=== PATIENT | female | born 1985 | race Caucasian/White ===

== ENCOUNTER 2023-07-13 17:45 | Emergency (ER) | payer SELFPAY ==
[~2023-07-13] VITALS: Ht 162.6 cm; Wt 81.8 kg
[~2023-07-13 17:45] MED LIST: CELEXA40 MG PO; KLONOPIN 0.5MG0.5 MG PO; MVI; TOPAMAX 100MG100 M1 PO; TOPAMAX50 MG PO; TOPROL XL100 MG PO; ZONEGRAN25 MG PO
[2023-07-13 17:46] VITALS: TEMP 97.7
[2023-07-13] MEDS ORDERED: Acetaminophen 500 MG TAB PO ONE (18:15)
[2023-07-13 19:21] VITALS: BP 134/91; PULSE 89
== END 2023-07-13 19:27 | disposition home or self-care (01) ==
LOC: COL.ER 17:45 → EDBD 17:46 → COL.ER 17:46
DX: M25.562 Pain in left knee (principal); F17.200 Nicotine dependence, unspecified, uncomplicated; W18.40XA Slipping, tripping and stumbling without falling, unspecified, initial encounter; X50.1XXA Overexertion from prolonged static or awkward postures, initial encounter; Y92.59 Other trade areas as the place of occurrence of the external cause; Y99.0 Civilian activity done for income or pay

== ENCOUNTER 2023-10-12 09:41 | Day surgery (SDC) | payer MEDICAID ==
[2023-10-12] VITALS (10 sets, daily range): BP systolic 110–147; BP diastolic 69–88; PULSE 60–93; TEMP 97.2–98
[~2023-10-12] VITALS: Ht 162.6 cm; Wt 73.1 kg
--- NOTE | 2023-10-12 09:50 | NUR ---
PATIENT ADMITED INTO ROOM 347, DIRECT ADMIT FROM [facility] WITH ABD PAIN. A&O. VSS. PATIENT REPORTS NAUSEA IS BETTER AFTER GETTING IV ZOFRAN IN ER AT [facility]. NO EMESIS. SENT POV WITH LEFT FORARM IV TO INT. HEAD TO TOE ASSESSMENT COMPLETE. AT BEDSIDE. NPO FOR SURGERY LATE TODAY. ORIENTED TO ROOM. CALL LIGHT IN REACH.
[2023-10-12] MEDS ORDERED: ZANAFLEX 4MG TAB4 MG PO (10:03)
[2023-10-12] MEDS ORDERED: PRISTIQ 50 MG T50 MG PO (10:07)
[2023-10-12] MEDS ORDERED: INDERAL 20MG20 MG PO (10:11)
[2023-10-12] MEDS ORDERED: FIORICET 325 MG1 TA1 PO (10:12)
[2023-10-12] MEDS ORDERED: DEPAKOTE 250MG250 MG PO (10:13)
[2023-10-12] MEDS ORDERED: DEPAKOTE500 MG PO (10:14)
[2023-10-12] MEDS ORDERED: Ondansetron 4 MG/2 ML VIAL IV PRN ×3 (10:30→19:30)
[2023-10-12] MEDS ORDERED: LR 1,000 ML IV SCH ×2 (10:30→12:30)
[2023-10-12] MEDS ORDERED: Morphine 4 MG/ML VIAL IV PRN (10:30)
[2023-10-12] MEDS ORDERED: TOPAMAX200 MG PO (10:30)
[2023-10-12] MEDS ORDERED: cefTRIAXone 1 G in Water For Injection,Sterile 10 ML IV ONE (10:30)
[2023-10-12] MEDS ORDERED: ZONEGRAN50 MG PO (10:35)
--- NOTE | 2023-10-12 11:55 | NUR ---
IC-GREEN GIVEN IV PER , SEE MAR.
[2023-10-12] MEDS ORDERED: Indocyanine Green 6.25 MG in Water For Injection,Sterile 1.25 ML IV SCH (12:00)
[2023-10-12] MEDS ORDERED: Meclizine 25 MG TAB PO SCH (12:30)
[2023-10-12] MEDS ORDERED: ULTRAM 50MG TAB50 MG PO (17:10)
--- NOTE | 2023-10-12 17:25 | NUR ---
PATIENT GOING DOWN TO OR VIA BED. CONSENT ON CHART. PRE-OP CHECKLIST AND TICKET TO RIDE DONE. PRE-OP MEDS GIVEN, SEE MAR, AND FLUIDS INFUSING VIA GRAVITY. PATIENT OFF FLOOR.
[2023-10-12] MEDS ORDERED: Midazolam 2 MG/2 ML VIAL ONE (17:37)
[2023-10-12] MEDS ORDERED: fentaNYL 50 MCG/ML 2 ML VIAL ONE ×2 (17:37→18:09)
[2023-10-12] MEDS ORDERED: Lidocaine PF 2% (20 MG/ML) 5 ML VIAL ONE (17:38)
[2023-10-12] MEDS ORDERED: Rocuronium 50 MG/5 ML Multi-Dose VIAL ONE ×2 (17:38→18:14)
[2023-10-12] MEDS ORDERED: Succinylcholine PF 200 MG/10 ML SYRINGE IV ONE (17:38)
[2023-10-12] MEDS ORDERED: Esmolol 10 MG/ML 10 ML VIAL IV ONE (18:09)
[2023-10-12] MEDS ORDERED: Topical Skin Adhesive 1 EACH (1 ML) TOP ONE (18:23)
[2023-10-12] MEDS ORDERED: dexAMETHasone 10 MG/ML VIAL ONE (18:25)
[2023-10-12] MEDS ORDERED: Ondansetron 4 MG/2 ML VIAL ONE (18:25)
[2023-10-12] MEDS ORDERED: Ketorolac 30 MG/ML VIAL ONE (18:25)
[2023-10-12] MEDS ORDERED: Meperidine 50 MG/ML 1 ML VIAL IV PRN (18:45)
[2023-10-12] MEDS ORDERED: hydrALAZINE 20 MG/ML 1 ML VIAL IV PRN (18:45)
[2023-10-12] MEDS ORDERED: fentaNYL 50 MCG/ML 1 ML SYRINGE/VIAL [PACU/SDC ONLY] IV PRN (18:45)
[2023-10-12] MEDS ORDERED: HYDROmorphone 1 MG/1 ML SYRINGE [PACU/SDC ONLY] IV PRN (18:45)
[2023-10-12] MEDS ORDERED: droPERidol 2.5 MG/ML 2 ML VIAL IV PRN (18:45)
[2023-10-12] MEDS ORDERED: Acetaminophen 325 MG TAB PO PRN (19:30)
[2023-10-12] MEDS ORDERED: Scopolamine 1 MG Delivered 3-Day PATCH TD ONE (19:43)
[2023-10-12] MEDS ORDERED: LR 1,000 ML IV ONE (20:05)
--- NOTE | 2023-10-12 20:05 | NUR ---
PT BACK TO ROOM 347 FROM PACU. A&O X4 BUT DROWSY. DENYING PAIN OR NAUSEA AT THIS TIME, SCOPOLAMINE PATCH BEHIND RT EAR. ON POSTOP VITALS, WNL. X4 LAP SITES PEDRO & EDGES WELL APPROX. IVF VIA GRAVITY INFUSING TO LEFT FOREARM. CALL LIGHT IN REACH
--- NOTE | 2023-10-12 21:30 | NUR ---
PT CONTINUES TO DENY N/V OR PAIN AT THIS TIME. PT TOLERATING ORAL INTAKE OK. AMBULATING AROUND ROOM INDEPENDENTLY. VSS. PT WANTING TO BE DISCHARGED TONIGHT
[2023-10-12] MEDS ORDERED: Home HYDROcodone/Acetaminophen 5/325 MG #4 TABS/PACK PO ONE (21:45)
--- NOTE | 2023-10-12 21:55 | NUR ---
REVIEWED DISCHARGED EDUCATION WITH PT & FAMILY, QUESTIONS ANSWERED. DR HERNANDEZ GAVE PHONE ORDER AROUND 1930 OK TO SEND PT HOME WITH TAKE HOME [employer] PACK IF D/C TONIGHT, REVIEWED WITH PT. RX# WAS [id number]. PT DENYING FURTHER NEEDS OR QUESTIONS. IV TO LEFT FOREARM D/C BY RN. & PT ESCORTED OUT OF BUILDING WITH FAMILY & STAFF MEMBER AT [id number].
== END 2023-10-12 21:55 | disposition home or self-care (01) ==
LOC: SDCO 09:41 → SURG 09:41 → EDSTATUS 16:30 → SURG 16:57 → SDCO 21:55
DX: K80.12 Calculus of gallbladder with acute and chronic cholecystitis without obstruction (principal); F17.210 Nicotine dependence, cigarettes, uncomplicated
CPT/HCPCS: OP; G0378; G0379; J0696; J1100; J1805; J1885; J2250; J2405; J2704; J3010; J7120